=== PATIENT | female | born 1940 | race Caucasian/White ===

== ENCOUNTER 2022-05-06 13:25 | Outpatient (CLI) | payer MEDICARE | END 2022-05-06 13:26 | disposition home or self-care (01) | LOC: CSHLAB 13:25 | PROVIDERS: ATTEND Internal Medicine Critical Care Medicine | DX: Z20.822 Contact with and (suspected) exposure to COVID-19 (principal) | CPT/HCPCS: 87811 ==

== ENCOUNTER 2022-05-11 15:24 | Outpatient (CLI) | payer MEDICARE | END 2022-05-11 15:25 | disposition home or self-care (01) | LOC: CSHCP 15:24 | PROVIDERS: ATTEND Internal Medicine Critical Care Medicine | DX: J44.9 Chronic obstructive pulmonary disease, unspecified (principal) | CPT/HCPCS: 94060; 94726; 94729; 94760 ==